=== PATIENT | female | born 1955 | race Caucasian/White ===

== ENCOUNTER 2025-09-06 12:47 | Outpatient (REF) | payer MEDICARE, SELFPAY ==
--- OUTSIDE RECORDS SUMMARY | 2025-09-06 15:27 | XMS_ITS ---
[facility] Team Organization Name Specialty Phone Email Start Date End [facility] 05/19/20242023
== END 2025-09-06 12:48 | disposition home or self-care (01) ==
LOC: HO.SH 12:47
PROVIDERS: Visit Provider Internal Medicine
DX: Z01.118 Encounter for examination of ears and hearing with other abnormal findings (principal); H61.23 Impacted cerumen, bilateral
CPT/HCPCS: 92567